=== PATIENT | male | born 1990 | race African-American/Black ===

== ENCOUNTER 2016-10-12 17:15 | Emergency (ER) | payer OTHER ==
--- NOTE | 2016-10-12 19:35 | EDPHY ---
General - History Smoking Status: Never smoked Narrative: CHIEF COMPLAINT: ski injury, right shoulder pain HISTORY OF PRESENT ILLNESS: patient was skiing earlier today when he crashed, landing on his right shoulder. This occurred within the past couple of hours. He landed on a tucked arm, abduction of the shoulder. He notes the sudden onset of pain in his AC joint. Mild to moderate 1st and quickly worsen. Moderate to severe with movement and palpation. Does not radiate. No numbness or tingling distally. No head or neck injury. No loss of consciousness. No chest or back injury. no injury to remaining extremities. No other associated complaints or modifying factors. PRIOR ORTHO INJURIES: none ESTABLISHED ORTHOPEDIST: none REVIEW OF SYSTEMS: Ten systems reviewed and are negative unless otherwise noted in the HPI EXAMINATION General Appearance: Alert, no distress HEENT: Normocephalic and atraumatic. No outward signs of trauma. Cardiovascular: Pulses normal throughout. Symmetric radial pulses at 2+ .Brisk cap refill Neurological: A&O, sensory symmetric, strength symmetric Skin: Warm and dry, no rash . No laceration. No abrasion. No contusion. No hematoma. Extremities: Point tenderness over the right AC joint. There is mild elevation at this location. No tenderness of the glenohumeral joint. No tenderness of the right elbow or wrist. Range of motion is intact but painful. There is no laceration or abrasion over the AC joint or clavicle. Neurovascular intact in the right upper extremity. Psychiatric: Mood and affect normal DIFFERENTIAL DIAGNOSES: Including but not limited to Sprain, strain, fracture, fracture dislocation MDM: 7:30 p.m. skiing injury with a right AC sprain. This is grade 2. He is neurovascular intact distal to the injury. We have discussed shoulder for comfort. We have discussed removing the sling for range of motion exercises multiple times a day. We discussed return to emergency department precautions regarding numbness , tingling, weakness. He will be discharged home with instructions to take anti -inflammatories for the next 5 days, pain medications as needed and follow up with Orthopedics for definitive care. I have answered all his questions. He is discharged home in a sling, neurovascular intact in stable condition. ED Precautions: Worsening pain. Erythema, edema, cyanosis, pallor, paresthesia or anesthesia. SUPERVISION: This patient was independently evaluated without the aide of supervising physician. (Moe Roberto) Medical Decision Making: I did not see this patient while he was in the emergency department. However his care was discussed with the PA while the patient was in the department. I agree with treatment plan management (Dustin Mcgrath) - Objective Vital Signs: Initial Vital Signs Temperature (C) 36.8 C 10/12/16 17:29 Heart Rate 92 10/12/16 17:29 Respiratory Rate 18 10/12/16 17:29 Blood Pressure 118/80 10/12/16 17:29 O2 Sat (%) 96 10/12/16 17:29 O2 Delivery Mode Room Air Allergies/Adverse Reactions: No Known Allergies Allergy (Unverified 10/12/16 17:29) Home Medications: Medication Instructions Recorded oxyCODONE HCL/ACETAMINOPHEN 1 each PO Q4-6PRN PRN #15 tablet 10/12/16 [Percocet 5-325 mg Tablet] Departure - Departure Disposition: Home, Routine, Self-Care Clinical Impression: Acromioclavicular (joint) (ligament) sprain Condition: Good Instructions: Acromioclavicular Separation (ED) Additional Instructions: Follow-up with Orthopedics for definitive care. Return to the ED for worsening pain Referrals: NONE *PRIMARY CARE P,. [Primary Care Provider] - As per Instructions Aaron Rivers MD [Medical Doctor] - As per Instructions Prescriptions: oxyCODONE HCL/ACETAMINOPHEN [Percocet 5-325 mg Tablet] 1 each PO Q4-6PRN PRN # 15 tablet PRN Reason: Pain, Breakthrough
[2016-10-12 20:00] VITALS: BP 128/78; PULSE 70; RESP 14; TEMP 98.4; O2SAT 94
== END 2016-10-12 20:00 | disposition home or self-care (01) ==
DX: S43.51XA Sprain of right acromioclavicular joint, initial encounter (principal); V00.328A Other snow-ski accident, initial encounter; Y99.8 Other external cause status; Y93.23 Activity, snow (alpine) (downhill) skiing, snowboarding, sledding, tobogganing and snow tubing
CPT/HCPCS: A4565